=== PATIENT | female | born 1985 | race Caucasian/White ===

== ENCOUNTER 2020-12-04 11:54 | Emergency (ER) | payer OTHER ==
[~2020-12-04] VITALS: Ht 170.1 cm; Wt 61.2 kg
[2020-12-04] MEDS ORDERED: DOXYCYCLINE100 M3 PO (14:31)
== END 2020-12-04 14:37 | disposition home or self-care (01) ==
LOC: ED 11:54
DX: F41.9 Anxiety disorder, unspecified (principal); L00 Staphylococcal scalded skin syndrome; Z88.2 Allergy status to sulfonamides

== ENCOUNTER 2020-12-10 20:17 | Emergency (ER) | payer OTHER ==
[~2020-12-10] VITALS: Wt 63.5 kg
[~2020-12-10 20:17] MED LIST: DOXYCYCLINE100 M3 PO
== END 2020-12-10 21:44 | disposition home or self-care (01) ==
LOC: ED 20:17
DX: F41.9 Anxiety disorder, unspecified (principal); F17.200 Nicotine dependence, unspecified, uncomplicated; Z88.2 Allergy status to sulfonamides; Z79.899 Other long term (current) drug therapy

== ENCOUNTER 2021-01-14 16:31 | Emergency (ER) | payer OTHER ==
[~2021-01-14] VITALS: Ht 170.1 cm; Wt 54.4 kg
[2021-01-14] MEDS ORDERED: VIBRAMYCIN100 MG PO (21:06)
== END 2021-01-14 21:03 | disposition home or self-care (01) ==
LOC: ED 16:31
DX: L02.412 Cutaneous abscess of left axilla (principal); F41.9 Anxiety disorder, unspecified; F17.200 Nicotine dependence, unspecified, uncomplicated; Z88.2 Allergy status to sulfonamides; Z79.899 Other long term (current) drug therapy